=== PATIENT | female | born 1975 | race Caucasian/White ===

== ENCOUNTER 2018-07-16 02:36 | Emergency (ER) | payer OTHER ==
[~2018-07-16] VITALS: Ht 154.9 cm; Wt 77.2 kg
[2018-07-16 02:52] VITALS: Ht 154.9 cm; Wt 77.2 kg
[2018-07-16 04:55] VITALS: BP 138/98
== END 2018-07-16 04:20 | disposition home or self-care (01) ==
LOC: ED 02:36
DX: S21.209A Unspecified open wound of unspecified back wall of thorax without penetration into thoracic cavity, initial encounter (principal); Z88.0 Allergy status to penicillin; Z90.710 Acquired absence of both cervix and uterus; X58.XXXA Exposure to other specified factors, initial encounter; Y93.89 Activity, other specified; Y92.89 Other specified places as the place of occurrence of the external cause; Y99.8 Other external cause status
CPT/HCPCS: 90715; J2001

== ENCOUNTER → 2019-04-16 | Day surgery (SDC) | payer OTHER ==
[~2019-04-16] VITALS: Ht 154.9 cm; Wt 72.1 kg
[2019-04-16 09:04] VITALS: BP 119/75
[2019-04-16 14:15] VITALS: BP 107/65
== END | disposition home or self-care (01) ==
LOC: OR 08:06 → DS 08:06
DX: D24.1 Benign neoplasm of right breast (principal); E66.3 Overweight; G43.909 Migraine, unspecified, not intractable, without status migrainosus; Z88.0 Allergy status to penicillin; Z68.30 Body mass index [BMI] 30.0-30.9, adult; Z79.899 Other long term (current) drug therapy; Z90.710 Acquired absence of both cervix and uterus; Z90.721 Acquired absence of ovaries, unilateral
CPT/HCPCS: 77065; J1170; J2001; J3010; J3490